=== PATIENT | male | born 1985 | race Caucasian/White ===

== ENCOUNTER → 2017-03-19 | Outpatient (CLI) | payer OTHER | END | disposition home or self-care (01) | LOC: C.LABSPEC 17:10 | PROVIDERS: ATTEND Urology | DX: N50.9 Disorder of male genital organs, unspecified (principal) ==

== ENCOUNTER 2017-03-25 10:30 | Day surgery (SDC) | payer OTHER ==
[2017-03-21 12:16] VITALS: BMI 27.0
--- NOTE | 2017-03-21 12:50 | PAT Medication Instructions ---
Service Date Mar 21, 2017. Current Home Medication List Albuterol Hfa (Ventolin Hfa), 2 PUFFS INH Q6H PRN for PRN Calcium Carbonate (Tums), 1-2 TABS PO PRN [Zantac], 1 TAB PO PRN Medication Instructions For Your Scheduled Surgery - Hold the following medications the morning of surgery: Calcium Carbonate (Tums), 1-2 TABS PO PRN - Take the following medications the morning of surgery with a sip of water: [Zantac], 1 TAB PO PRN (if needed) Albuterol Hfa (Ventolin Hfa), 2 PUFFS INH Q6H PRN for PRN (if needed) - Take the following medications as scheduled the night before surgery: [Zantac], 1 TAB PO PRN (if needed) Albuterol Hfa (Ventolin Hfa), 2 PUFFS INH Q6H PRN for PRN (if needed) Calcium Carbonate (Tums), 1-2 TABS PO PRN (if needed) If you have any questions please call us at [phone] or [phone] or [phone]
[2017-03-21 13:35] LABS: BASO % 0.6 %; BASO ABS # 0.03 K/uL (0-0.2); EOS % 2.3 %; EOS ABS # 0.11 K/uL (0-0.5); HEMATOCRIT 45.6 % (42-52); HEMOGLOBIN 15.9 g/dL (14.0-18.0); IG# 0.01 K/uL (0.00-0.02); LYMPH % 26.3 %; LYMPH ABS # 1.26 K/uL (1.2-3.4); MEAN CELL VOLUME 84.9 fL (80-100); MEAN CORPUSCULAR HEMOGLOBIN 29.6 pg (25-34); MEAN CORPUSCULAR HGB CONC 34.9 g/dl (32-36); MEAN PLATELET VOLUME 11.9 fL (7.4-10.4); MONO % 7.9 %; MONO ABS # 0.38 K/uL (0.11-0.59); NEUT % 62.7 %; PLATELET COUNT 219 K/uL (130-400); RED CELL DISTRIBUTION WIDTH CV 12.8 % (11.5-14.5); RED CELL DISTRIBUTION WIDTH SD 39.1 fL (36.4-46.3); WHITE BLOOD COUNT 4.79 K/uL (4.8-10.8)
--- NOTE | 2017-03-21 14:11 | DIAGNOSTIC IMAGING REPORT ---
CHEST 2 VIEWS ROUTINE HISTORY: Preop. COMPARISON: None. FINDINGS: The lungs are clear. Cardiac silhouette is normal in size. No pleural effusions. No pneumothorax. Calcified left AP window lymph nodes. IMPRESSION: No acute process. Electronically signed by: Naif Jordan M.D. 03/21/2017 2:10 PM Dictated Date/Time: 03/21/2017 2:07 PM
[2017-03-21 16:35] LABS: CALCIUM 9.7 mg/dl (8.5-10.1); CREATININE 0.92 mg/dl (0.60-1.40); POTASSIUM 3.7 mmol/L (3.5-5.1)
[2017-03-24 17:27] LABS: HERPES SIMPLEX AB IGG-1 < 0.90 INDEX (< 0.90); HERPES SIMPLEX AB IGG-2 < 0.90 INDEX (< 0.90)
[~2017-03-25] VITALS: Ht 185.4 cm; Wt 93.0 kg
[~2017-03-25 10:30] MED LIST: ATROPINE SULFATE 0.1 MG/ML 5ML SYR IV PRN; CALC500C3 PO; CEFAZOLIN 2000MG IV PUSH 10 ML IV SCH; EpHEDrine SULFATE INJ 50 MG/ML AMP IV PRN; FENTANYL CITRATE INJ 50 MCG/1 ML 2 ML VIAL IV PRN; LACTATED RINGER'S 1000ML 1,000 ML IV SCH; ONDANSETRON INJ 2 MG/ML 2 ML VIAL IV PRN; VNTHFA/IN INH; ZANTAC PO
[2017-03-25 10:50] VITALS: BP 130/74; PULSE 59; TEMP 37.1; O2SAT 99; Ht 185.4 cm; Wt 93.0 kg
[2017-03-25] MEDS ORDERED: PROPOFOL IV EMULSION 10 MG/ML 20 ML VIAL IV ONE (13:32)
[2017-03-25] MEDS ORDERED: ONDANSETRON INJ 2 MG/ML 2 ML VIAL ONE (13:32)
[2017-03-25] MEDS ORDERED: LIDOCAINE HCL 2% 2 ML VIAL (20MG/ML) ONE (13:32)
[2017-03-25] MEDS ORDERED: MIDAZOLAM HCL 1 MG/ML 2ML VIAL ONE (13:32)
[2017-03-25] MEDS ORDERED: FENTANYL CITRATE INJ 50 MCG/1 ML 2 ML VIAL ONE (13:32)
--- NOTE | 2017-03-25 13:45 | History & Physical Bridge Note ---
H&P Re-Evaluation Bridge Note: I have examined the patient, reviewed the History & Physical and in the interval since the performance of the History & Physical I have noted the following changes of clinical significance: No changes noted
[2017-03-25] MEDS ORDERED: OXYC7.5T65 PO (13:52)
--- NOTE | 2017-03-25 13:55 | Discharge Instructions ---
Discharge Instructions Date of Service Mar 25, 2017. Admission Reason for Admission: Genital Warts Discharge Discharge Diagnosis / Problem: Suspicious lesion Discharge Goals Goal(s): Decrease discomfort, Improve function Activity Recommendations Activity Limitations: resume your previous activity Lifting Limitations: gradually increase as tolerated Exercise/Sports Limitations: gradually increase as tolerated May Resume Sexual Activity: after follow-up appointment Shower/Bathe: tomorrow . Instructions / Follow-Up Instructions / Follow-Up Okay to shower tomorrow. Okay to wash 2-3 x daily with warm soapy water. Okay to place ointment as needed on wounds. Suture will dissolve over time. Monitor for fever or redness. Call if any issues. Fulgurated lesions may blister or fall off. Bandage as needed. Current Hospital Diet Patient's current hospital diet: Discharge Diet Recommended Diet: Regular Diet Procedures Procedures Performed: Fulguration of lesion. Excision of lesion Pending Studies Studies pending at discharge: no Medical Emergencies . Who to Call and When: Medical Emergencies: If at any time you feel your situation is an emergency, please call 911 immediately. . Non-Emergent Contact Non-Emergency issues call your: Primary Care Provider, Urologist Call Non-Emergent contact if: you have a fever, temperature is above 101, temperature is above 101.5, your pain is not controlled, your pain is worsening , wound has increased drainage, wound has increased redness, wound has increased pain . . "Provider Documentation" section prepared by Dagoberto Andrew,. . VTE Core Measure Inpt VTE Proph given/why not?: SCD's
[2017-03-25] MEDS ORDERED: OXYCODONE/ACETAMINOPHEN 7.5-325 TAB PO PRN (14:00)
[2017-03-25] MEDS ORDERED: BUPIVACAINE 0.5 % 5 MG/1 ML MPF 30ML VIAL ONE (14:03)
[2017-03-25] MEDS ORDERED: KETOROLAC TROMETHAMINE 30 MG/ML VIAL ONE (14:15)
[2017-03-25] MEDS ORDERED: BACITRACIN OINT 15 GM TUBE ONE (14:27)
--- NOTE | 2017-03-25 14:35 | [facility] Operative Report ---
Operative Report Operative Date Mar 25, 2017. Pre-Operative Diagnosis Suspicious lesions penis, groin, scrotum. Post-Operative Diagnosis Same Procedure(s) Performed Excisional biopsy. Fulguration of lesions Surgeon Andrew Estimated Blood Loss 10 Findings Multiple areas of lesions, possibly genital warts. Specimens 1. penile lesion, base of penis. 2. Groin lesion right Drains None Anesthesia General Complication(s) None Disposition Recovery Room / PACU Indications Multiple nonhealing lesions of groin which are bothersome and have increased in size. Description of Procedure Patient was consented and brought back to the operating room. Patient was placed under anesthesia in the supine position. Patient was prepped and draped in the regular sterile fashion. A time out was completed. The lesions were assessed. The larger lesion at the base of the penis was marked and local anesthetic was placed under the lesion. This was also done for the lesion on the right groin. These were excised with a scalpel creating an elliptical excision. The wound bed was fulgurated. The skin edges were reapproximated with interrupted horizontal mattress suture. The remaining lesions were injected with anesthetic and the electrocautery was used to fulgurate and obliterate the lesions. The excised lesion was sent for pathologic analysis. The areas were cleaned and bandaged. The patient was cleaned, aroused from anesthesia, and transferred to the pacu in stable condition having tolerated the procedure well with no complications. I was present and participated in all aspects of the procedure. I attest to the content of the Intraoperative Record and any orders documented therein. Any exceptions are noted below.
[2017-03-25 15:25] VITALS: BP 132/67; PULSE 49; TEMP 36.2; O2SAT 99
--- NOTE | 2017-03-25 15:25 | Anesthesiology Progress Note ---
Anesthesia Post Op Note Date & Time Mar 25, 2017 at 15:25 Vital Signs Pain Intensity: 0 Vital Signs Past 12 Hours Date Time Temp Pulse Resp B/P (MAP) Pulse Ox O2 Delivery O2 Flow Rate FiO2 03/25/17 15:15 52 12 122/81 97 03/25/17 15:05 36.2 54 18 122/73 97 03/25/17 14:55 65 20 119/73 100 Mask 10 03/25/17 14:45 50 12 111/71 99 Mask 10 03/25/17 14:39 36.5 53 16 110/71 99 Mask 10 03/25/17 10:50 37.1 59 18 130/74 (92) 99 Room Air Notes Mental Status: alert / awake / arousable, participated in evaluation Pt Amnestic to Procedure: Yes Nausea / Vomiting: adequately controlled Pain: adequately controlled Airway Patency, RR, SpO2: stable & adequate BP & HR: stable & adequate Hydration State: stable & adequate Anesthetic Complications: no major complications apparent
[2017-03-25 15:55] VITALS: BP 127/69; PULSE 55; TEMP 36.2; O2SAT 99
== END 2017-03-25 16:45 | disposition home or self-care (01) ==
LOC: C.ACU 10:30
PROVIDERS: ATTEND Urology
DX: A63.0 Anogenital (venereal) warts (principal); N48.9 Disorder of penis, unspecified; J45.909 Unspecified asthma, uncomplicated; Z80.3 Family history of malignant neoplasm of breast; Z82.49 Family history of ischemic heart disease and other diseases of the circulatory system; Z87.891 Personal history of nicotine dependence; K21.9 Gastro-esophageal reflux disease without esophagitis

== ENCOUNTER 2017-03-29 17:09 | Emergency (ER) | payer OTHER ==
[~2017-03-29] VITALS: Ht 185.4 cm; Wt 93.5 kg
[~2017-03-29 17:09] MED LIST changes: -ATROPINE SULFATE 0.1 MG/ML 5ML SYR IV PRN; -CEFAZOLIN 2000MG IV PUSH 10 ML IV SCH; -EpHEDrine SULFATE INJ 50 MG/ML AMP IV PRN; -FENTANYL CITRATE INJ 50 MCG/1 ML 2 ML VIAL IV PRN; -LACTATED RINGER'S 1000ML 1,000 ML IV SCH; -ONDANSETRON INJ 2 MG/ML 2 ML VIAL IV PRN; +OXYC7.5T65 PO
[2017-03-29 17:22] VITALS: TEMP 36.7; Ht 185.4 cm; Wt 93.5 kg
[2017-03-29] MEDS ORDERED: ZNT/150 PO (18:32)
[2017-03-29 18:36] VITALS: BP 117/65; PULSE 55; O2SAT 97
[2017-03-29 18:38] LABS: BASO % 0.6 %; BASO ABS # 0.03 K/uL (0-0.2); EOS % 3.1 %; EOS ABS # 0.17 K/uL (0-0.5); HEMATOCRIT 44.7 % (42-52); HEMOGLOBIN 15.2 g/dL (14.0-18.0); LYMPH % 25.9 %; LYMPH ABS # 1.41 K/uL (1.2-3.4); MEAN CORPUSCULAR HEMOGLOBIN 28.9 pg (25-34); MEAN PLATELET VOLUME 10.8 fL (7.4-10.4); MONO % 6.8 %; MONO ABS # 0.37 K/uL (0.11-0.59); NEUT % 63.6 %; NEUT ABS # 3.47 K/uL (1.4-6.5); PLATELET COUNT 243 K/uL (130-400); RED CELL DISTRIBUTION WIDTH CV 12.8 % (11.5-14.5); RED CELL DISTRIBUTION WIDTH SD 39.4 fL (36.4-46.3); WHITE BLOOD COUNT 5.45 K/uL (4.8-10.8)
[2017-03-29 18:50] LABS: INR 1.1 (0.9-1.1)
--- NOTE | 2017-03-29 19:00 | DIAGNOSTIC IMAGING REPORT ---
RIGHT TOES 5 VIEWS HISTORY: right 1-3rd toes injury COMPARISON: None. FINDINGS: There is no fracture or dislocation. Mild soft tissue swelling within the right first through third toes. No radiopaque foreign bodies. Old, healed fracture within the fifth metatarsal. IMPRESSION: No fracture or dislocation within the right first through third toes. Electronically signed by: Naif Jordan M.D. 03/29/2017 6:59 PM Dictated Date/Time: 03/29/2017 6:57 PM
--- NOTE | 2017-03-29 23:07 | EMERGENCY ROOM VISIT NOTE ---
History Report prepared by Natasha: Carter Rawls Under the Supervision of: Dr. Christopher Singh M.D. First contact with patient: 17:42 Chief Complaint: TOE PAIN, INJURY Stated Complaint: blue toes, sensitive History of Present Illness The patient is a 31 year old male who presents to the Emergency Room with complaints of constant toe pain for three weeks. He reports that his toes have become more sensitive to pain over the last several weeks. He notes that bumping his toes on objects hurts more than normal. He states that he was taking a shower this morning and noticed that several of his toes were bruised. He is unsure of how his toes became bruised. He denies any symptoms in his hands , lips, or ears. He states that his dog dropped a bone on his right first toe. He states that today his son hit his toe with a toy car and that's when he noticed the bruising to his toes. He notes mild swelling to the tips of some of his toes but otherwise denies any swelling. He denies any numbness in his toes. He denies any history of HTN. He notes that he had elevated cholesterol two years ago, though is unclear if he has a history of HLD. He denies any fever or chest pain or shortness of breath. He notes that he had genital warts removed two days ago. Source of History: patient Onset: three weeks Position: toe(s) Quality: other (more sensitive than normal) Timing: constant Associated Symptoms: No fevers, No chest pain, No numbness (toes) Note: He notes bruising and mild swelling to several toes. He denies any symptoms to his hands, lips, or ears. Review of Systems See HPI for pertinent positives & negatives. A total of 10 systems reviewed and were otherwise negative. Past Medical & Surgical Medical Problems: (1) Asthma (2) Bronchitis (3) History of genital warts Surgical Problems: (1) H/O sinus surgery (2) H/O wisdom tooth extraction Family History Cancer Heart disease Social History Smoking Status: Never Smoker Smokeless Tobacco Use: No Alcohol Use: heavy (10-15/week) Marital Status: Housing Status: lives with family Occupation Status: employed Current/Historical Medications Scheduled Calcium Carbonate (Tums), 1-2 TABS PO PRN Scheduled PRN Albuterol Hfa (Ventolin Hfa), 2 PUFFS INH Q6H PRN for PRN Oxycodone/Acetaminophen 7.5MG/325MG (Percocet 7.5MG/325MG), 1 TAB PO Q4 PRN for Pain Ranitidine Hcl (Zantac), Unknown Dose PO DAILY PRN for DYSPEPSIA Allergies Coded Allergies: Lactose Intolerance (GI) (Verified Allergy, Unknown, GI UPSET, 03/29/17) NO KNOWN DRUG ALLERGIES (Verified Allergy, Unknown, NONE, 03/29/17) POLLEN (Verified Allergy, Unknown, SNEEZING EYES TEAR, 03/29/17) Physical Exam Vital Signs Date Time Temp Pulse Resp B/P (MAP) Pulse Ox O2 Delivery O2 Flow Rate FiO2 03/29/17 18:36 55 16 117/65 97 Room Air 03/29/17 17:22 36.7 61 18 137/85 100 Room Air Physical Exam Constitutional: Vital signs reviewed. Eyes: Pupils are equal round reactive to light. Conjunctiva are noninjected. ENT: Pharynx is clear without erythema or exudate. Mucous membranes are moist. Neck supple without meningeal signs. Respiratory: Clear to auscultation bilaterally. Breath sounds are equal bilaterally. Cardiovascular: Regular rate and rhythm. No rubs or gallops. GI: Soft, nondistended and nontender. Bowel sounds are present. Musculoskeletal: No peripheral edema. Symmetric and normal pulses in all extremities. Mild tenderness over right second and third toe. Some bruising to tip of left third toe. Some bruising to the tips of the right second and third toe. Bruising over the dorsal aspect of right great toe. Integumentary: No cyanosis. Neurological: The patient is awake and alert. No focal deficits. Psychiatric: Normal affect. Medical Decision & Procedures ER Provider Diagnostic Interpretation: Radiology results as stated below per my review and the radiologist's interpretation: RIGHT TOES 5 VIEWS HISTORY: right 1-3rd toes injury COMPARISON: None. FINDINGS: There is no fracture or dislocation. Mild soft tissue swelling within the right first through third toes. No radiopaque foreign bodies. Old, healed fracture within the fifth metatarsal. IMPRESSION: No fracture or dislocation within the right first through third toes. Electronically signed by: Naif Jordan M.D. 03/29/2017 6:59 PM Dictated Date/Time: 03/29/2017 6:57 PM Laboratory Results 03/29/17 18:27 Red Blood Count 5.26, Mean Corpuscular Volume 85.0, Mean Corpuscular Hemoglobin 28.9, Mean Corpuscular Hemoglobin Concent 34.0, Mean Platelet Volume 10.8, Neutrophils (%) (Auto) 63.6, Lymphocytes (%) (Auto) 25.9, Monocytes (%) (Auto) 6.8, Eosinophils (%) (Auto) 3.1, Basophils (%) (Auto) 0.6, Neutrophils # (Auto) 3.47, Lymphocytes # (Auto) 1.41, Monocytes # (Auto) 0.37, Eosinophils # (Auto) 0.17, Basophils # (Auto) 0.03 Test 03/29/17 18:27 White Blood Count 5.45 K/uL (4.8-10.8) Red Blood Count 5.26 M/uL (4.7-6.1) Hemoglobin 15.2 g/dL (14.0-18.0) Hematocrit 44.7 % (42-52) Mean Corpuscular Volume 85.0 fL (80-100) Mean Corpuscular Hemoglobin 28.9 pg (25-34) Mean Corpuscular Hemoglobin Concent 34.0 g/dl (32-36) Platelet Count 243 K/uL (130-400) Mean Platelet Volume 10.8 fL (7.4-10.4) Neutrophils (%) (Auto) 63.6 % Lymphocytes (%) (Auto) 25.9 % Monocytes (%) (Auto) 6.8 % Eosinophils (%) (Auto) 3.1 % Basophils (%) (Auto) 0.6 % Neutrophils # (Auto) 3.47 K/uL (1.4-6.5) Lymphocytes # (Auto) 1.41 K/uL (1.2-3.4) Monocytes # (Auto) 0.37 K/uL (0.11-0.59) Eosinophils # (Auto) 0.17 K/uL (0-0.5) Basophils # (Auto) 0.03 K/uL (0-0.2) RDW Standard Deviation 39.4 fL (36.4-46.3) RDW Coefficient of Variation 12.8 % (11.5-14.5) Immature Granulocyte % (Auto) 0.0 % Immature Granulocyte # (Auto) 0.00 K/uL (0.00-0.02) Prothrombin Time 11.1 SECONDS (9.0-12.0) Prothromb Time International Ratio 1.1 (0.9-1.1) Activated Partial Thromboplast Time 27.0 SECONDS (21.0-31.0) Partial Thromboplastin Ratio 1.0 Laboratory results as reviewed by me. ED Course 1744: The patient was evaluated in room A2. A complete history and physical exam was performed. 1906: I reassessed the patient at this time. He is feeling better and resting comfortably. I discussed the results and treatment plan with the patient. I answered all pertaining questions that he had. He expressed understanding and verbalized agreement. The patient will be discharged home. Medical Decision This is a 31-year-old male who presents with pain and bruising to his toes. Differential diagnosis includes contusion, pathologic fracture, platelet disorder, vascular insufficiency. I did perform a limited focused review of portions of the patient's old chart on the electronic medical record. The patient has had excisional biopsy of genital warts March 27, 2017. I did evaluate the patient as noted above. The patient is presenting with increased pain to his toes for the past 3 weeks and he noticed some discoloration today. He went on the Internet and became concerned and so came here for evaluation. On my examination the patient has some bruising to his toes but otherwise an unremarkable exam. IV access was established. I did order and personally review the patient's toe x-rays as described above. There is no evidence of pathologic fracture. I did order and review the patient's blood work as noted in the electronic medical record. He does not have any thrombocytopenia. I did discuss the test results with the patient. He was discharged in good condition. Medication Reconcilliation Current Medication List: was personally reviewed by me Blood Pressure Screening Patient's blood pressure: Elevated blood pressure Blood pressure disposition: Referred to PCP Impression Primary Impression: Superficial bruising of foot Scribe Attestation The scribe's documentation has been prepared under my direct and personally reviewed by me in its entirety. I confirm that the note above accurately reflects all work, treatment, procedures, and medical decision making performed by me. Departure Information Dispostion Home / Self-Care Referrals No Doctor, Assigned (PCP) Forms HOME CARE DOCUMENTATION FORM, IMPORTANT VISIT INFORMATION, WORK / SCHOOL INSTRUCTIONS Patient Instructions My [facility] Additional Instructions You have been examined and treated today on an emergency basis only. This is not a substitute for, or an effort to provide, complete comprehensive medical care. It is impossible to recognize and treat all injuries or illnesses in a single emergency department visit. It is therefore important that you follow up closely with your physician. Call as soon as possible for an appointment. Return for worsening symptoms or if you develop any other concerning symptoms. Problem Qualifiers Primary Impression: Superficial bruising of foot Encounter type: initial encounter Laterality: unspecified laterality Qualified Codes: S90.30XA - Contusion of unspecified foot, initial encounter
== END 2017-03-29 19:23 | disposition home or self-care (01) ==
LOC: C.EDB 17:10 → C.EDA 19:23
DX: S90.111A Contusion of right great toe without damage to nail, initial encounter (principal); S90.121A Contusion of right lesser toe(s) without damage to nail, initial encounter; S90.122A Contusion of left lesser toe(s) without damage to nail, initial encounter; W22.8XXA Striking against or struck by other objects, initial encounter; J45.909 Unspecified asthma, uncomplicated; Z80.9 Family history of malignant neoplasm, unspecified; Z82.49 Family history of ischemic heart disease and other diseases of the circulatory system

== ENCOUNTER → 2017-10-08 | Outpatient (CLI) | payer OTHER ==
[~2017-10-08] MED LIST changes: -OXYC7.5T65 PO; -ZANTAC PO; +ZNT/150 PO
--- NOTE | 2017-10-08 10:21 | DIAGNOSTIC IMAGING REPORT ---
CHEST 2 VIEWS ROUTINE CLINICAL HISTORY: Chronic cough. COMPARISON STUDY: Chest radiograph March 21, 2017. FINDINGS: Lung volumes are normal. No pneumothorax or pleural effusion is noted. There is no consolidation to suggest pneumonia. Pulmonary vascularity is normal. Cardiomediastinal silhouette is normal. Calcified AP window lymph node is noted. IMPRESSION: No acute cardiopulmonary findings. Electronically signed by: Alejandro Hdez M.D. 10/08/2017 10:20 AM Dictated Date/Time: 10/08/2017 10:19 AM
== END | disposition home or self-care (01) ==
LOC: C.RAD1850 09:27
PROVIDERS: ATTEND Nurse Practitioner Adult Health
DX: R05 Cough (principal)